=== PATIENT | female | born 1965 | race Caucasian/White ===

== ENCOUNTER 2016-11-12 10:02 | Emergency (ER) | payer OTHER, BC ==
[2016-11-12] MEDS ORDERED: Sodium Chloride 0.9% 1,000 ML IV ONE (10:48)
[2016-11-12] MEDS ORDERED: Ondansetron 4 MG/2 ML SDV IVPUSH ONE (10:48)
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
[2016-11-12] MEDS ORDERED: Morphine 2 MG/ML Syringe IVPUSH ONE (10:50)
--- NOTE | 2016-11-12 11:42 | CR ---
Left tibia and fibula. Bones are normally mineralized. There is no radiographic evidence of acute fracture. No acute defin ite abnormal findings are seen. No soft tissue swelling about the ankle. Impression: No acute bony abnormalities
[2016-11-12 12:53] VITALS: BP 132/75
== END 2016-11-12 12:53 | disposition home or self-care (01) ==
LOC: MW.ED 10:02
DX: S80.12XA Contusion of left lower leg, initial encounter (principal); E10.9 Type 1 diabetes mellitus without complications; Z98.890 Other specified postprocedural states; Z79.899 Other long term (current) drug therapy; V89.2XXA Person injured in unspecified motor-vehicle accident, traffic, initial encounter; Y92.410 Unspecified street and highway as the place of occurrence of the external cause
CPT/HCPCS: 73590; 96361; 96374; 96375; 99284; J2270; J2405; J7040; 99282